=== PATIENT | female | born 1950 | race Caucasian/White ===

== ENCOUNTER 2017-08-07 01:11 | Outpatient (CLI) | payer MEDICARE, OTHER ==
[2017-08-07 06:19] LABS: #Basophils 0.1 thou/uL (0.0-0.2); #Eosinphils 0.5 thou/uL (0.0-0.7); #Lymphocytes 2.2 thou/uL (1.20-3.40); #Monocytes 0.6 thou/uL (0.11-0.59); #Neutrophils 5.7 thou/uL (1.40-6.50); %Lymphocytes 24.7 % (21.0-51.0); %Monocytes 6.5 % (0.0-10.0); %Neutrophils 62.8 % (42.0-75.0); Hemoglobin 10.1 g/dL (12.0-16.0); Mean Corpuscular HGB CONC 32.3 g/dL (32.0-36.0); Mean Corpuscular Hemoglobin 27.4 pg (27.0-31.0); Mean Corpuscular Volume 84.8 fl (81.0-99.0); Mean Platelet Volume 5.8 fL (7.4-10.4); Platelet Count 289 thou/uL (130-400); RBC Distribution Width 14.2 % (11.5-14.5); Red Blood Cell (RBC) Count 3.68 mill/uL (4.20-5.40)
[2017-08-07 06:34] LABS: ALT (SGPT) 17 U/L (8-55); AST (SGOT) 17 U/L (5-34); Albumin 3.3 g/dL (3.4-4.8); Alkaline Phosphatase 59 U/L (40-150); Anion Gap 15 mmol/L (10-20); BUN (Urea Nitrogen) 28 mg/dL (9.8-20.1); Bilirubin, Total 0.2 mg/dL (0.2-1.2); Calc. Creatinine Clearance 0 mL/min (70-130); Calcium 8.9 mg/dL (7.8-10.44); Carbon Dioxide 22 mmol/L (23-31); Cardiac Risk 3.4 (Less than 4.5); Chloride 101 mmol/L (98-107); Cholesterol 179 mg/dl (< 200 Desired); Estimated GFR-MDRD Greater than 90; Glucose 82 mg/dL (80-115); HDL Cholesterol 53 mg/dL (>60 Neg Risk); LDL Cholesterol, Calculated 109 mg/dL; Potassium 4.8 mmol/L (3.5-5.1); Protein, Total 6.3 g/dL (6.0-8.3); Sodium 133 mmol/L (136-145); Triglycerides 83 mg/dL (Less than 150)
[2017-08-07 06:43] LABS: Hemoglobin A1c 5.5 % (4.0-6.0)
== END 2017-08-07 01:12 | disposition home or self-care (01) ==
LOC: BURMANOR 01:11
PROVIDERS: ATTEND Clinical Nurse Specialist Medical-Surgical
DX: E11.9 Type 2 diabetes mellitus without complications (principal); I10 Essential (primary) hypertension
CPT/HCPCS: 36415; 80053; 80061; 83036; 85025

== ENCOUNTER 2017-08-23 13:37 | Outpatient (CLI) | payer MEDICARE, OTHER ==
[2017-08-23 13:51] LABS: Bilirubin Negative (Negative); Blood, Urine Small (Negative); Clarity Cloudy (Clear); Glucose, Urine (Dipstick) Negative (Negative); Leukocyte Moderate (Negative); Nitrite Negative (Negative); Protein, Urine (Dipstick) Trace mg/dL (Neg-Trace); Urobilinogen 0.2 mg/dL (0.2-1.0); pH, Urine 7.5 (5.0-9.0)
[2017-08-23 13:59] LABS: Bacteria/HPF 2+ HPF (None Seen); Crystals/HPF None Seen HPF (Negative); Hyaline Casts/LPF NONE SEEN LPF (0-3 Hyaline); Other Casts/LPF None Seen LPF (0-3 Hyaline); Oval Fat Bodies/HPF None Seen HPF (None Seen); Renal Epithelial None Seen HPF (0-3); Sperm/HPF None Seen HPF (None Seen); Squamous Epithelial 0-3 HPF (0-3); Transitional Epithelial NONE SEEN HPF (0-3); Trichomonas/HPF None Seen HPF (None Seen); Yeast-All Forms None Seen HPF (None Seen)
== END 2017-08-23 13:38 | disposition home or self-care (01) ==
LOC: BURLABSP 13:37
PROVIDERS: ATTEND Clinical Nurse Specialist Medical-Surgical
DX: R30.0 Dysuria (principal)
CPT/HCPCS: 81001; 87077; 87086; 87186

== ENCOUNTER 2020-05-19 12:43 | Outpatient (CLI) | payer MEDICARE, OTHER ==
[2020-05-19 12:55] LABS: ALT (SGPT) 18 U/L (8-55); AST (SGOT) 18 U/L (5-34); Albumin 3.2 g/dL (3.4-4.8); Alkaline Phosphatase 90 U/L (40-110); Anion Gap 21 mmol/L (10-20); BUN (Urea Nitrogen) 72 mg/dL (9.8-20.1); Bilirubin, Total 0.5 mg/dL (0.2-1.2); Calc. Creatinine Clearance 0 mL/min (70-130); Calcium 8.6 mg/dL (7.8-10.44); Carbon Dioxide 25 mmol/L (23-31); Chloride 85 mmol/L (98-107); Estimated GFR-MDRD 36; Globulin 3.3 g/dL (2.4-3.5); Potassium 3.6 mmol/L (3.5-5.1); Protein, Total 6.5 g/dL (6.0-8.3)
[2020-05-19 12:58] LABS: Glucose 169 mg/dL (80-115); Sodium 127 mmol/L (136-145)
== END 2020-05-19 12:44 | disposition home or self-care (01) ==
LOC: BURMANOR 12:43
PROVIDERS: ATTEND Registered Nurse Community Health
DX: E86.0 Dehydration (principal)
CPT/HCPCS: 80053

== ENCOUNTER 2020-05-20 02:41 | Outpatient (CLI) | payer MEDICARE, OTHER ==
[2020-05-20 03:20] LABS: Anion Gap 16 mmol/L (10-20); BUN (Urea Nitrogen) 71 mg/dL (9.8-20.1); Calc. Creatinine Clearance 0 mL/min (70-130); Calcium 7.6 mg/dL (7.8-10.44); Carbon Dioxide 25 mmol/L (23-31); Chloride 84 mmol/L (98-107); Estimated GFR-MDRD 43; Glucose 112 mg/dL (80-115); Potassium 3.5 mmol/L (3.5-5.1); Sodium 121 mmol/L (136-145)
== END 2020-05-20 02:42 | disposition home or self-care (01) ==
LOC: BURMANOR 02:41
PROVIDERS: ATTEND Registered Nurse Community Health
DX: E87.1 Hypo-osmolality and hyponatremia (principal)
CPT/HCPCS: 80048

== ENCOUNTER 2020-05-20 06:30 | Outpatient (CLI) | payer MEDICARE, OTHER ==
[2020-05-20 07:02] LABS: Anion Gap 15 mmol/L (10-20); BUN (Urea Nitrogen) 70 mg/dL (9.8-20.1); Calc. Creatinine Clearance 0 mL/min (70-130); Calcium 7.7 mg/dL (7.8-10.44); Carbon Dioxide 26 mmol/L (23-31); Chloride 85 mmol/L (98-107); Estimated GFR-MDRD 47; Glucose 91 mg/dL (80-115); Potassium 3.7 mmol/L (3.5-5.1); Sodium 122 mmol/L (136-145)
== END 2020-05-20 06:31 | disposition home or self-care (01) ==
LOC: BUR/OP 06:30
PROVIDERS: ATTEND Registered Nurse Community Health
DX: E87.1 Hypo-osmolality and hyponatremia (principal)

== ENCOUNTER 2020-05-20 16:11 | Outpatient (CLI) | payer MEDICARE, OTHER ==
[2020-05-20 17:07] LABS: Anion Gap 17 mmol/L (10-20); BUN (Urea Nitrogen) 66 mg/dL (9.8-20.1); Calc. Creatinine Clearance 0 mL/min (70-130); Carbon Dioxide 24 mmol/L (23-31); Chloride 86 mmol/L (98-107); Estimated GFR-MDRD 49; Glucose 111 mg/dL (80-115); Potassium 3.6 mmol/L (3.5-5.1); Sodium 123 mmol/L (136-145)
== END 2020-05-20 16:12 | disposition home or self-care (01) ==
LOC: BURMANOR 16:11
PROVIDERS: ATTEND Registered Nurse Community Health
DX: I50.41 Acute combined systolic (congestive) and diastolic (congestive) heart failure (principal); E86.0 Dehydration

== ENCOUNTER 2020-06-21 10:30 | Outpatient (CLI) | payer MEDICARE, MEDICAID | END 2020-06-21 10:31 | disposition home or self-care (01) | LOC: BURLABSP 10:30 → BURMANOR 10:31 | PROVIDERS: ATTEND Registered Nurse Community Health | DX: C18.9 Malignant neoplasm of colon, unspecified (principal) | CPT/HCPCS: 82274 ==

== ENCOUNTER 2020-09-06 12:46 | Outpatient (CLI) | payer MEDICARE, MEDICAID ==
[2020-09-07 20:21] LABS: SARS-CoV-2 MS2 Positive; SARS-CoV-2 N Gene Negative; SARS-CoV-2 S Gene Negative; SARS-CoV-2 by NAA Not Detected (NotDetected); SARS-CoV-2 orf1ab Negative
== END 2020-09-06 12:47 | disposition home or self-care (01) ==
LOC: BURMANOR 12:46
PROVIDERS: ATTEND Registered Nurse Community Health
DX: R05 Cough (principal); R06.2 Wheezing; Z20.828 Contact with and (suspected) exposure to other viral communicable diseases
CPT/HCPCS: 87635; 87804; U0003

== ENCOUNTER 2020-10-08 06:47 | Outpatient (CLI) | payer MEDICARE, MEDICAID ==
[2020-10-08 07:01] LABS: Bilirubin Negative (Negative); Blood, Urine Large (Negative); Clarity Turbid (Clear); Glucose, Urine (Dipstick) Negative (Negative); Ketone, Urine Negative (Negative); Leukocyte Large (Negative); Nitrite Negative (Negative); Protein, Urine (Dipstick) > or equal to 300 mg/dL (Neg-Trace); Urobilinogen 0.2 mg/dL (Less than 2)
[2020-10-08 07:02] LABS: pH, Urine Greater/Equal 9.0 (5.0-9.0)
[2020-10-08 07:04] LABS: Bacteria/HPF 3+ HPF (None Seen); Mucous/LPF 1+ LPF (<2+); RBC/HPF 21-50 HPF (0-3); Squamous Epithelial 0-3 HPF (0-3); Triple Phosphate Crystal 3+ HPF (None Seen)
== END 2020-10-08 06:48 | disposition home or self-care (01) ==
LOC: BURMANOR 06:47
PROVIDERS: ATTEND Family Medicine
DX: N39.0 Urinary tract infection, site not specified (principal)
CPT/HCPCS: 81001; 87077; 87086; 87186

== ENCOUNTER 2020-12-01 06:42 | Outpatient (CLI) | payer MEDICARE, OTHER ==
[2020-12-01 07:06] LABS: Bilirubin Negative (Negative); Blood, Urine Trace (Negative); Clarity Cloudy (Clear); Glucose, Urine (Dipstick) Negative (Negative); Ketone, Urine Negative (Negative); Leukocyte Large (Negative); Nitrite Negative (Negative); Protein, Urine (Dipstick) Negative (Neg-Trace); Specific Gravity, Urine 1.015 (1.005-1.030); Urobilinogen 0.2 mg/dL (Less than 2); pH, Urine 5.5 (5.0-9.0)
[2020-12-01 07:24] LABS: Bacteria/HPF 2+ HPF (None Seen); Mucous/LPF 1+ LPF (<2+); WBC/HPF 21-50 HPF (0-3)
== END 2020-12-01 06:43 | disposition home or self-care (01) ==
LOC: BURMANOR 06:42
PROVIDERS: ATTEND Registered Nurse Community Health
DX: N31.9 Neuromuscular dysfunction of bladder, unspecified (principal)
CPT/HCPCS: 81003; 81015

== ENCOUNTER 2021-05-20 14:28 | Outpatient (CLI) | payer MEDICARE, OTHER, MEDICAID ==
[2021-05-20 14:39] LABS: Bilirubin Negative (Negative); Blood, Urine Large (Negative); Clarity Cloudy (Clear); Glucose, Urine (Dipstick) Negative (Negative); Ketone, Urine Negative (Negative); Leukocyte Large (Negative); Nitrite Positive (Negative); Protein, Urine (Dipstick) 30 mg/dL (Neg-Trace); Specific Gravity, Urine 1.015 (1.005-1.030); Urobilinogen 0.2 mg/dL (Less than 2)
[2021-05-20 14:40] LABS: pH, Urine Greater/Equal 9.0 (5.0-9.0)
[2021-05-20 14:44] LABS: Bacteria/HPF 4+ HPF (None Seen); Renal Epithelial 0-3 HPF (None Seen); Squamous Epithelial 0-3 HPF (0-3); Triple Phosphate Crystal 3+ HPF (None Seen)
== END 2021-05-20 14:29 | disposition home or self-care (01) ==
LOC: BURLAB 14:28
PROVIDERS: ATTEND Family Medicine
DX: N39.0 Urinary tract infection, site not specified (principal)
CPT/HCPCS: 81003; 81015

== ENCOUNTER 2022-01-09 23:59 | Outpatient (CLI) | payer MEDICARE, OTHER ==
[2022-01-10 07:52] LABS: Bilirubin Negative (Negative); Blood, Urine Trace (Negative); Clarity Slightly Cloudy (Clear); Glucose, Urine (Dipstick) Negative (Negative); Ketone, Urine Negative (Negative); Leukocyte Large (Negative); Nitrite Positive (Negative); Protein, Urine (Dipstick) Negative (Neg-Trace); Specific Gravity, Urine 1.015 (1.005-1.030); Urobilinogen 0.2 mg/dL (Less than 2); pH, Urine 5.5 (5.0-9.0)
[2022-01-10 07:53] LABS: Bacteria/HPF 3+ HPF (None Seen); RBC/HPF 0-3 HPF (0-3); Renal Epithelial 0-3 HPF (None Seen); Squamous Epithelial 0-3 HPF (0-3); Transitional Epithelial 0-3 HPF (None Seen); WBC/HPF Greater Than 50 HPF (0-3)
== END 2022-01-10 | disposition home or self-care (01) ==
LOC: BURMANOR 23:59
PROVIDERS: ATTEND Registered Nurse Community Health
DX: N32.89 Other specified disorders of bladder (principal)
CPT/HCPCS: 81003; 81015

== ENCOUNTER 2022-07-13 12:45 | Outpatient (CLI) | payer MEDICARE, OTHER ==
[2022-07-13 13:24] LABS: Bilirubin Negative (Negative); Blood, Urine Moderate (Negative); Clarity Cloudy (Clear); Glucose, Urine (Dipstick) Negative (Negative); Ketone, Urine Negative (Negative); Leukocyte Moderate (Negative); Nitrite Negative (Negative); Protein, Urine (Dipstick) 30 mg/dL (Neg-Trace); Urobilinogen 0.2 mg/dL (Less than 2); pH, Urine 5.5 (5.0-9.0)
[2022-07-13 13:36] LABS: Bacteria/HPF 3+ HPF (None Seen); Mucous/LPF 1+ LPF (<2+); RBC/HPF 21-50 HPF (0-3); WBC/HPF 21-50 HPF (0-3)
== END 2022-07-13 12:46 | disposition home or self-care (01) ==
LOC: BURMANOR 12:45
PROVIDERS: ATTEND Nurse Practitioner Family
DX: N39.0 Urinary tract infection, site not specified (principal); N31.9 Neuromuscular dysfunction of bladder, unspecified
CPT/HCPCS: 81003; 81015; 87077; 87086; 87186

== ENCOUNTER 2022-07-27 15:22 | Outpatient (CLI) | payer MEDICARE, OTHER ==
[2022-07-27 15:39] LABS: Bilirubin Negative (Negative); Blood, Urine Moderate (Negative); Clarity Cloudy (Clear); Glucose, Urine (Dipstick) Negative (Negative); Ketone, Urine Negative (Negative); Leukocyte Moderate (Negative); Nitrite Negative (Negative); Protein, Urine (Dipstick) 30 mg/dL (Neg-Trace); Urobilinogen 0.2 mg/dL (Less than 2); pH, Urine 5.5 (5.0-9.0)
[2022-07-27 15:45] LABS: RBC/HPF Greater than 50 HPF (0-3); WBC/HPF 21-50 HPF (0-3)
[2022-07-27 15:47] LABS: Bacteria/HPF 3+ HPF (None Seen); Renal Epithelial 0-3 HPF (None Seen)
== END 2022-07-27 15:23 | disposition home or self-care (01) ==
LOC: BURMANOR 15:22
PROVIDERS: ATTEND Nurse Practitioner Family
DX: N39.0 Urinary tract infection, site not specified (principal); N31.9 Neuromuscular dysfunction of bladder, unspecified
CPT/HCPCS: 81003; 81015; 87077; 87086; 87186

== ENCOUNTER 2022-10-26 08:43 | Emergency (ER) | payer MEDICARE, OTHER ==
[2022-10-26 09:46] LABS: Bilirubin Negative (Negative); Blood, Urine Large (Negative); Clarity Slightly Cloudy (Clear); Glucose, Urine (Dipstick) Negative (Negative); Ketone, Urine Negative (Negative); Leukocyte Large (Negative); Nitrite Negative (Negative); Protein, Urine (Dipstick) > or equal to 300 mg/dL (Neg-Trace); Urobilinogen 0.2 mg/dL (Less than 2)
[2022-10-26 09:56] LABS: RBC/HPF 21-50 HPF (0-3)
[2022-10-26 09:57] LABS: Bacteria/HPF Rare-Few HPF (None Seen)
[2022-10-26] MEDS ORDERED: Ciprofloxacin 500 MG TAB ONE (10:21)
[2022-10-26] MEDS ORDERED: traMADol HCl 50 MG TAB ONE ×2 (10:21)
== END 2022-10-26 09:54 | disposition home or self-care (01) ==
LOC: BURERS 08:43
DX: N39.0 Urinary tract infection, site not specified (principal); E11.9 Type 2 diabetes mellitus without complications; I10 Essential (primary) hypertension
CPT/HCPCS: 51702; 81003; 81015; 87077; 87086; 87186

== ENCOUNTER 2022-10-30 16:22 | Outpatient (CLI) | payer MEDICARE, MEDICAID | END 2022-10-30 16:23 | disposition home or self-care (01) | LOC: BURRAD 16:22 | PROVIDERS: ATTEND Registered Nurse Community Health | DX: R10.31 Right lower quadrant pain (principal); K31.89 Other diseases of stomach and duodenum; M16.12 Unilateral primary osteoarthritis, left hip; M24.452 Recurrent dislocation, left hip | CPT/HCPCS: 74018 ==

== ENCOUNTER 2022-11-02 10:12 | Outpatient (CLI) | payer MEDICARE, OTHER | END 2022-11-02 10:13 | disposition home or self-care (01) | LOC: BURCT 10:12 | PROVIDERS: ATTEND Registered Nurse Community Health | DX: M25.551 Pain in right hip (principal); M25.451 Effusion, right hip | CPT/HCPCS: 72192 ==

== ENCOUNTER 2023-10-29 12:00 | Outpatient (CLI) | payer MEDICARE, MEDICAID | END 2023-10-29 12:01 | disposition home or self-care (01) | LOC: BURRAD 12:00 | PROVIDERS: ATTEND Family Medicine | DX: J18.9 Pneumonia, unspecified organism (principal); R91.8 Other nonspecific abnormal finding of lung field | CPT/HCPCS: 71046 ==